=== PATIENT | female | born 1990 | race Caucasian/White ===

== ENCOUNTER 2017-10-01 18:39 | Emergency (ER) | payer SELFPAY, OTHER ==
[2017-10-01 19:08] LABS: BILIRUBIN, URINE NEG (NEG); BLOOD, URINE NEG (NEG); GLUCOSE,URINE NEG (NEG); KETONE, URINE NEG (NEG); NITRITE,URINE NEG (NEG); URINE LEUKOCYTE ESTERASE NEG (NEG)
[2017-10-01 19:13] LABS: URINE COLOR STRAW (YELLW/STRAW)
[2017-10-01 19:15] LABS: COMMENT (UR) CULTURE INDICATED; CULTURE IF INDICATED CULTURE INDICATED; RBC, URINE 0-3 /hpf (0-3); SQUAMOUS EPITHELIAL CELL URINE 0-5 /hpf (0-5)
== END 2017-10-01 20:00 | disposition home or self-care (01) ==
LOC: PHED 18:39
DX: N30.00 Acute cystitis without hematuria (principal); J20.8 Acute bronchitis due to other specified organisms; F17.200 Nicotine dependence, unspecified, uncomplicated
CPT/HCPCS: 81001; 87086; 99283

== ENCOUNTER 2017-10-04 22:55 | Emergency (ER) | payer SELFPAY ==
[~2017-10-04] VITALS: Ht 160 cm; Wt 65.0 kg
[~2017-10-04 22:55] MED LIST: BACT800T5 PO
[2017-10-04 23:35] VITALS: BP 114/60; PULSE 80; RESP 18; TEMP 98.5; O2SAT 98
--- NOTE | 2017-10-04 23:49 | PD ---
HPI Chief Complaint: Complaint Time Seen by Provider: 23:44 Travel History International Travel<30 days: No Contact w/Intl Traveler<30days: No Traveled to known affect area: No History of Present Illness HPI Patient was seen yesterday and diagnosed with a UTI and started on antibiotics. However today during the day she found out that her boyfriend cheated on her and he was treated for an STD. Patient comes then concerned and wants to be tested for sexually transmitted diseases. She does not have any symptoms currently. She is here strictly for routine testing. No known drug allergy Past medical history significant for C-sections [facility] Past Medical History Blood Disorders: No Past Surgical History Section: Yes (multiple) Social History Alcohol Use: No Tobacco Use: Yes Substance Use: No Allergies-Medications (Allergen,Severity, Reaction): Coded Allergies: No Known Allergies (Verified Adverse Reaction, Unknown, 10/01/17) Reported Meds & Prescriptions Reported Meds & Active Scripts Active Bactrim DS (Sulfamethoxazole-Trimethoprim) 800-160 Mg Tab 1 Tab PO BID Review of Systems Except as stated in HPI: all other systems reviewed are Neg Physical Exam Narrative GENERAL: SKIN: Warm and dry. HEAD: Atraumatic. Normocephalic. EYES: Pupils equal and round. No scleral icterus. No injection or drainage. ENT: No nasal bleeding or discharge. Mucous membranes pink and moist. NECK: Trachea midline. No JVD. CARDIOVASCULAR: Regular rate and rhythm. RESPIRATORY: No accessory muscle use. Clear to auscultation. Breath sounds equal bilaterally. GASTROINTESTINAL: Abdomen soft, non-tender, nondistended. MUSCULOSKELETAL: Extremities without clubbing, cyanosis, or edema. No obvious deformities. NEUROLOGICAL: Awake and alert. No obvious cranial nerve deficits. Motor grossly within normal limits. Five out of 5 muscle strength in the arms and legs. Normal speech. PSYCHIATRIC: Appropriate mood and affect; insight and judgment normal. Data Data Last Documented VS Vital Signs Date Time Temp Pulse Resp B/P (MAP) Pulse Ox O2 Delivery O2 Flow Rate FiO2 10/04/17 23:35 98.5 80 18 114/60 (78) 98 Orders Orders Ed Discharge Order (10/04/17 23:55) MDM Medical Decision Making Medical Screen Exam Complete: Yes Emergency Medical Condition: Yes Medical Record Reviewed: Yes Differential Diagnosis Not applicable Narrative Course The patient is here for routine STD screening which is not under the auspices of emergency department procedures. However the patient was navigated advised to follow-up either with the health department or with a community outreach clinic which provides free STD screening Saturday through Saturday... Which includes not only the bacterial STDs but also the viral STDs such as hepatitis B , hepatitis C and HIV. Patient was made aware of alternative places to go and get further testing, although she was unhappy that all those cannot be done right now, she understands and she will follow-up with outpatient clinic Diagnosis Primary Impression: Visit for routine STD screening-medically clear Patient Instructions: General Instructions Additional Instructions: Your advised to finish taking the antibiotic for your urinary tract infection. For routine testing you are advised to go to [facility] located at [address] [place] [address]. Phone number is [phone] and ask for STD screening Disposition: 01 DISCHARGE HOME Condition: Stable Kian Preston MD October 04, 2017 23:49
== END 2017-10-05 00:18 | disposition home or self-care (01) ==
LOC: PHEFT 22:55
DX: Z11.3 Encounter for screening for infections with a predominantly sexual mode of transmission (principal); N39.0 Urinary tract infection, site not specified; Z72.0 Tobacco use
CPT/HCPCS: 99281